=== PATIENT | female | born 1955 | race Caucasian/White ===

== ENCOUNTER → 2017-10-29 17:57 | Outpatient (CLI) | payer BC | END | disposition home or self-care (01) | LOC: D.MAMMO 13:15 | DX: Z12.31 Encounter for screening mammogram for malignant neoplasm of breast (principal) ==

== ENCOUNTER 2019-02-22 17:57 | Inpatient (IN) | payer BC ==
[~2019-02-22] VITALS: Ht 160 cm; Wt 94.3 kg
[2019-02-22 18:40] LABS: BASOPHILS 0.2 % (0-2); EOSINOPHILS 0.2 % (0-7); HEMATOCRIT 42.6 % (36.0-48.0); HEMOGLOBIN 13.8 g/dL (12-16); IMMATURE GRANULOCYTES 0.2 % (0-5); LYMPHOCYTES 18.1 % (15-50); MCH 30.3 pg (26.0-34.0); MCHC 32.4 g/dL (31.0-37.0); MCV 93.6 fL (80.0-100.0); MEAN PLATELET VOLUME 9.9 fL (7.4-10.4); MONOCYTES 8.6 % (2-11); NEUTROPHILS 72.7 % (40-80); PLATELET COUNT 267 10x3/uL (130-400); RBC 4.55 10x6/uL (4.00-5.40); RDW 13.1 % (11.5-14.5); WBC 10.8 10x3/uL (4.8-10.8)
[2019-02-22 18:47] LABS: CALC OSMOLALITY 277 mosm/kg (275-300); CALCIUM 9.4 mg/dL (8.5-10.1); CARBON DIOXIDE 29.1 mmol/L (21.0-32.0); CHLORIDE - SERUM 102 mmol/L (98-107); CREATININE - SERUM 0.8 mg/dL (0.6-1.3); GLUCOSE 98 mg/dL (74-106); SODIUM 138 mmol/L (136-145); UREA NITROGEN 19 mg/dL (7-18); eGFR NON AFRICAN AMERICAN 76 mL/min (90-120)
[2019-02-22 18:47] LABS: APPEARANCE CLEAR (CLEAR); BILIRUBIN NEGATIVE (NEGATIVE); COLOR YELLOW (YELLOW); GLUCOSE NEGATIVE (NEGATIVE); KETONE NEGATIVE (NEGATIVE); NITRITE NEGATIVE (NEGATIVE); PROTEIN NEGATIVE (NEGATIVE); SPECIFIC GRAVITY 1.015 (1.005-1.020); UROBILINOGEN NORMAL (NORMAL)
[2019-02-22 18:55] LABS: ALBUMIN 3.7 g/dL (3.4-5.0); ALKALINE PHOSPHATASE 73 U/L (46-116); ALT (SGPT) 37 U/L (10-68); AMYLASE - SERUM 67 U/L (25-115); BILIRUBIN - TOTAL 0.49 mg/dL (0.2-1.3); LIPASE 266 U/L (73-393); PROTEIN - SERUM 7.5 g/dL (6.4-8.2)
[2019-02-22 21:33] VITALS: BP 113/38
--- NOTE | 2019-02-22 22:05 | NUR ---
RECEIVED PT TO FLOOR FROM ER VIA WHEELCHAIR. ACCOMPANIED BY SPOUSE. REVIEWED HOME MEDS AND HISTORY. PT RECEIVED PAIN MEDICINE IN ER. RATES PAIN AT 7/10 AT THIS TIME. DENIES NAUSEA. COMPLETE ASSESSMENT PER FLOW-SHEET. NS RUNNING AT 100 ML/HR. PT NPO. WILL CONTINUE TO MONITOR.
[2019-02-22] MEDS ORDERED: ARMOUR THYROID90 MG PO (22:10)
[2019-02-22] MEDS ORDERED: ZYLOPRIM100 MG PO (22:12)
[2019-02-22] MEDS ORDERED: EDARBYCLOR 40-1 EAC1 PO (22:14)
[2019-02-22] MEDS ORDERED: OMEPRAZOLE40 MG PO (22:15)
[2019-02-22] MEDS ORDERED: ADVIL200 MG PO (22:16)
[2019-02-22] MEDS ORDERED: MIRALAX17 GM PO (22:17)
[2019-02-23] VITALS (7 sets, daily range): BP systolic 101–140; BP diastolic 41–64; Ht 160 cm; Wt 94.3 kg
--- NOTE | 2019-02-23 07:10 | NUR ---
PT RESTING IN BED. NO SIGNS OF DISTRESS. IV TO LEFT AC PATENT NO REDNESS OR TENDERNESS. DENIES ANY PAIN OR NEED AT THIS TIME. CALL LIGHT IN REACH. BED LOW POSITION. FAMILY AT BEDSIDE AT THIS TIME.
--- NOTE | 2019-02-23 15:51 | NUR ---
I have reviewed this patient and I concur with the Shift Assessment completed by the Licensed Practical Nurse today this shift.
--- NOTE | 2019-02-23 20:22 | NUR ---
REC'D. CHGE OF SHIFT WALKING ROUNDS. IN BED WATCHING TV.DENIES ANY DISCOMFORT AT PRESENT TIME. REIN FORCED STRICT NPO PREVIOUSLY ORDERED VOICES UNDERSTANDING. WILL CONTINUE TO MONITOR FOR ANY CHGES AND FOLLOW CURRENT PLAN OF CARE
[2019-02-24 00:17] VITALS: BP 123/59
[2019-02-24 04:15] VITALS: BP 110/55
[2019-02-24 08:45] LABS: CALC OSMOLALITY 281 mosm/kg (275-300); CALCIUM 8.4 mg/dL (8.5-10.1); CARBON DIOXIDE 27.2 mmol/L (21.0-32.0); CHLORIDE - SERUM 108 mmol/L (98-107); CREATININE - SERUM 0.8 mg/dL (0.6-1.3); GLUCOSE 71 mg/dL (74-106); POTASSIUM - SERUM 3.8 mmol/L (3.5-5.1); SODIUM 142 mmol/L (136-145); eGFR NON AFRICAN AMERICAN 76 mL/min (90-120)
[2019-02-24 08:49] LABS: UREA NITROGEN 14 mg/dL (7-18)
[2019-02-24 08:57] LABS: BASOPHILS 0.3 % (0-2); HEMATOCRIT 36.3 % (36.0-48.0); HEMOGLOBIN 11.8 g/dL (12-16); IMMATURE GRANULOCYTES 0.1 % (0-5); LYMPHOCYTES 19.6 % (15-50); MCH 30.3 pg (26.0-34.0); MCHC 32.5 g/dL (31.0-37.0); MCV 93.1 fL (80.0-100.0); MONOCYTES 10.7 % (2-11); NEUTROPHILS 68.3 % (40-80); PLATELET COUNT 242 10x3/uL (130-400); RDW 12.8 % (11.5-14.5)
[2019-02-24 09:00] LABS: WBC 7.9 10x3/uL (4.8-10.8)
[2019-02-24 09:23] VITALS: BP 121/57
[2019-02-24 13:12] VITALS: BP 134/94
--- NOTE | 2019-02-24 15:04 | MORECARE ---
CASE MANAGEMENT DISCHARGE SUMMARY PATIENT: IVETT NASCIMENTO UNIT: [id number] ADM DATE: 02/22/19 AGE: 63 : 53 SEX: F ROOM/BED: D.2238 AUTHOR: MANASDOC PHYSICIAN: REFERRING PHYSICIAN: SOHA RAMIREZ MD DATE OF SERVICE: 02/24/19 Discharge Plan Patient Name: IVETT NASCIMENTO Facility: [facility]:[place] : 1955 Planned Disposition: Home Anticipated Discharge Date: Discharge Date: Expected LOS: Initial Reviewer: [email or web address] Initial Review Date: 02/25/2019 Generated: 02/24/19 4:03 pm Comments DCP- Discharge Planning Updated by [email or web address]: Rachelle Johnston on 02/24/19 2:[address] Patient Name: IVETT NASCIMENTO Admission Status: ER Accout number: [id number] Admission Date: 02-22-2019 : 1955 Admission Diagnosis: Attending: SOHA RAMIREZ Current LOS: 2 Anticipated DC Date: Planned Disposition: Home Primary Insurance: [employer] FEP Discharge Planning Comments: CM met with patient to complete initial dc planning assessment. CM educated patient on the CM role and verbal consent given by patient to complete assessment. Patient lives at home with her spouse. At discharge patient plans to return and feels this is a safe discharge. CM discussed availability of home health, rehab services, and medical equipment. Patient denied known discharge needs at this time. CM will continue to follow and will assist as needed with dc plans/needs. Floating Derrick Operator: Rachelle Johnston DCPIA - Discharge Planning Initial Assessment Updated by [email or web address]: Rachelle Johnston on 02/24/19 3:01 pm * Is the patient Alert and Oriented? Yes * How many steps to enter\exit or inside your home? 3/0 * PCP Dr. Shepherd * Pharmacy [facility] on [address] * Preadmission Environment Home with Family * ADLs Independent * Equipment None * List name and contact numbers for known caregivers / representatives who currently or will assist patient after discharge: Juanpablo Nascimento - spouse - [phone] * Verbal permission to speak to the caregivers and representatives has been obtained from the patient. Yes * Community resources currently utilized None * Additional services required to return to the preadmission environment? No * Can the patient safely return to the preadmission environment? Yes * Has this patient been hospitalized within the prior 30 days at any hospital? No Patient Name: IVETT NASCIMENTO Page [id number] at 1504 All edits/amendments must be made on the electronic document DICTATION DATE: 02/24/191502 TITLE INSPECTOR: PHIL 02/24/19 150 RPT#: [id number] DC DATE: STATUS: ADM IN [facility] [address] [place] [address] END OF REPORT
--- NOTE | 2019-02-24 19:54 | NUR ---
rec'd. chge of shift walking rounds in bed lying on left side watching tv at bedside.denies any pain nausea at present time discussed test for SBFT in am voices understanding. states discussed with me. will continue to monitor for any chges and follow current plan of care
[2019-02-24 20:00] VITALS: BP 140/62
[2019-02-25 00:39] VITALS: BP 122/59
[2019-02-25 04:00] VITALS: BP 131/59
[2019-02-25 05:20] LABS: BASOPHILS 0.2 % (0-2); EOSINOPHILS 2.3 % (0-7); HEMATOCRIT 36.9 % (36.0-48.0); HEMOGLOBIN 12.1 g/dL (12-16); IMMATURE GRANULOCYTES 0.2 % (0-5); LYMPHOCYTES 28.2 % (15-50); MCH 30.2 pg (26.0-34.0); MCHC 32.8 g/dL (31.0-37.0); MONOCYTES 9.5 % (2-11); NEUTROPHILS 59.6 % (40-80); PLATELET COUNT 281 10x3/uL (130-400); RBC 4.01 10x6/uL (4.00-5.40); RDW 12.6 % (11.5-14.5); WBC 6.4 10x3/uL (4.8-10.8)
[2019-02-25 05:59] LABS: CALC OSMOLALITY 278 mosm/kg (275-300); CALCIUM 8.5 mg/dL (8.5-10.1); CARBON DIOXIDE 23.3 mmol/L (21.0-32.0); CHLORIDE - SERUM 106 mmol/L (98-107); CREATININE - SERUM 0.7 mg/dL (0.6-1.3); POTASSIUM - SERUM 3.8 mmol/L (3.5-5.1); SODIUM 141 mmol/L (136-145); UREA NITROGEN 14 mg/dL (7-18); eGFR NON AFRICAN AMERICAN 89 mL/min (90-120)
[2019-02-25 06:42] LABS: GLUCOSE 51 mg/dL (74-106)
--- NOTE | 2019-02-25 07:24 | NUR ---
I have reviewed this patient and I concur with the Shift Assessment completed by the Licensed Practical Nurse today this shift.
--- NOTE | 2019-02-25 08:01 | NUR ---
CALLED DR RAMIREZ IN REGARDS TO SBFT, RECEIVED ORDERS FOR FT WITH [facility]ASTOG[facility], CALLED AND SPOKE TO HIREN IN REGARDS TO ORDER, WILL CONTINUE WITH PLAN OF CARE,
--- NOTE | 2019-02-25 10:20 | NUR ---
PT BACK FROM SBFT, LYING IN BED STATES SHE IS READY FOR DC, EXPLAINED DR NEEDS TO SEE RESULTS FROM TEST, CHANGE HER DIET TO SEE IF SHE TOLERATES WELL BEFORE DECISION TO DC. CL IN REACH SPOUSE AT BEDSIDE, CONTINUE WITH PLAN OF CARE
--- NOTE | 2019-02-25 10:52 | NUR ---
I have reviewed this patient and I concur with the Shift Assessment completed by the Licensed Practical Nurse today this shift.
[2019-02-25 13:05] VITALS: BP 151/55
[2019-02-25] MEDS ORDERED: FLAGYL500 MG PO (16:14)
[2019-02-25] MEDS ORDERED: LEVAQUIN750 MG PO (16:14)
--- NOTE | 2019-02-25 16:57 | NUR ---
PT BEING DC. WENT OVER DC PAPERWORK WITH PT AND SPOUSE. ALL QUESTIONS ANSWERED. WENT OVER DC PAPERWORK. PT TAKEN DOWN VIA
--- NOTE | 2019-02-26 08:34 | MORECARE ---
CASE MANAGEMENT DISCHARGE SUMMARY PATIENT: IVETT NASCIMENTO UNIT: [id number] ADM DATE: 02/22/19 AGE: 63 : 53 SEX: F ROOM/BED: D.2238 AUTHOR: MANASDOC PHYSICIAN: REFERRING PHYSICIAN: SOHA RAMIREZ MD DATE OF SERVICE: 02/26/19 Discharge Plan Patient Name: IVETT NASCIMENTO Facility: [facility]:[place] : 1955 Planned Disposition: Home Anticipated Discharge Date: Discharge Date: 02/25/2019 Expected LOS: 0 Initial Reviewer: [email or web address] Initial Review Date: 02/25/2019 Generated: 02/26/19 9:33 am Comments DCP- Discharge Planning Updated by [email or web address]: Rachelle Johnston on 02/24/19 2:[address] Patient Name: IVETT NASCIMENTO Admission Status: ER Accout number: [id number] Admission Date: 02-22-2019 : 1955 Admission Diagnosis: Attending: SOHA RAMIREZ Current LOS: 2 Anticipated DC Date: Planned Disposition: Home Primary Insurance: [employer] [facility] Discharge Planning Comments: CM met with patient to complete initial dc planning assessment. CM educated patient on the CM role and verbal consent given by patient to complete assessment. Patient lives at home with her spouse. At discharge patient plans to return and feels this is a safe discharge. CM discussed availability of home health, rehab services, and medical equipment. Patient denied known discharge needs at this time. CM will continue to follow and will assist as needed with dc plans/needs. Tick Eradicator: Rachelle Johnston DCPIA - Discharge Planning Initial Assessment Updated by [email or web address]: Rachelle Johnston on 02/24/19 3:01 pm * Is the patient Alert and Oriented? Yes * How many steps to enter\exit or inside your home? 3/0 * PCP Dr. Shepherd * [facility] on [address] * Preadmission Environment Home with Family * ADLs Independent * Equipment None * List name and contact numbers for known caregivers / representatives who currently or will assist patient after discharge: Juanpablo Nascimento - spouse - [phone] * Verbal permission to speak to the caregivers and representatives has been obtained from the patient. Yes * Community resources currently utilized None * Additional services required to return to the preadmission environment? No * Can the patient safely return to the preadmission environment? Yes * Has this patient been hospitalized within the prior 30 days at any hospital? No Last DP export: 02/24/19 2:04 p Patient Name: IVETT NASCIMENTO Page [id number] at 0834 All edits/amendments must be made on the electronic document DICTATION DATE: 02/26/19832 MANAGER WELLNESS: PHIL 02/26/19832 RPT#: [id number] DC DATE:02/25/19 STATUS: DIS IN [facility] [address] [place] [address] END OF REPORT
== END 2019-02-25 17:02 | disposition home or self-care (01) | DRG 391 ==
LOC: D.ER 17:57 → D.MS 20:37
PROVIDERS: Emergency Medicine; ADMIT Surgery; ATTEND Surgery
DX: K52.9 Noninfective gastroenteritis and colitis, unspecified (principal); K63.1 Perforation of intestine (nontraumatic); I10 Essential (primary) hypertension; K21.9 Gastro-esophageal reflux disease without esophagitis; M19.90 Unspecified osteoarthritis, unspecified site

== ENCOUNTER 2019-07-30 11:45 | Outpatient (CLI) | payer BC ==
[2019-02-23 14:35] VITALS: BMI 36.8
[~2019-07-30 11:45] MED LIST: ADVIL200 MG PO; ARMOUR THYROID90 MG PO; EDARBYCLOR 40-1 EAC1 PO; FLAGYL500 MG PO; LEVAQUIN750 MG PO; MIRALAX17 GM PO; OMEPRAZOLE40 MG PO; ZYLOPRIM100 MG PO
== END 2019-07-30 12:45 | disposition home or self-care (01) ==
LOC: D.MAMMO 11:45
PROVIDERS: ATTEND Family Medicine
DX: Z12.31 Encounter for screening mammogram for malignant neoplasm of breast (principal)

== ENCOUNTER → 2020-05-24 08:00 | Outpatient (CLI) | payer MEDICARE, BC ==
[2019-02-23 14:35] VITALS: BMI 36.8
== END | disposition home or self-care (01) ==
LOC: D.NM 08:00
PROVIDERS: ATTEND Family Medicine
DX: R19.8 Other specified symptoms and signs involving the digestive system and abdomen (principal)